=== PATIENT | female | born 1965 | race Caucasian/White ===

== ENCOUNTER 2018-10-25 15:50 | Emergency (ER) | payer BC ==
--- NOTE | 2018-10-25 16:15 | ER Document Report ---
HPI - HPI Patient complains to provider of: Hand and rib injury Time Seen by Provider: 10/25/18 16:07 Onset: This afternoon Onset/Duration: Sudden Quality of pain: Achy Pain Level: 4 Context: Patient states she was on scaffolding and fell about 4 foot. Patient states that when she fell she landed on her right hand and rib area. Patient states that she attempted to catch herself with each hand and therefore has bilateral hand pain and right rib tenderness. Patient denies any head injury or loss of consciousness. Patient denies any abdominal pain neck or back pain. Associated Symptoms: Other - Right rib, bilateral hand pain. denies: Nonproductive cough, Fever, Headache, Nausea, Vomiting Exacerbated by: Movement Relieved by: Remaining still Similar symptoms previously: No Recently seen / treated by doctor: No - ROS ROS below otherwise negative: Yes Systems Reviewed and Negative: Yes All other systems reviewed and negative - NEURO Neurology: DENIES: Headache, Weakness - CARDIOVASCULAR Cardiovascular: REPORTS: Chest pain - Right lateral rib tendern - RESPIRATORY Respiratory: DENIES: Trouble Breathing, Coughing - GASTROINTESTINAL Gastrointestinal: DENIES: Abdominal Pain, Nausea, Patient vomiting - REPRODUCTIVE Reproductive: DENIES: : - MUSCULOSKELETAL Musculoskeletal: REPORTS: Extremity pain - bilateral hands. DENIES: Back Pain, Neck Pain, Swelling - DERM Skin Color: Normal Skin Problems: None Past Medical History - General Information source: Patient - Social History Smoking Status: Never Smoker Chew tobacco use (# tins/day): No Drug Abuse: None Occupation: Construction Lives with: Spouse/Significant other Family History: Reviewed & Not Pertinent Patient has suicidal ideation: No Patient has homicidal ideation: No - Medical History Medical History: Negative Renal/ Medical History: Denies: Hx Peritoneal Dialysis Past Surgical History: Reports: Hx Tonsillectomy, Hx Tubal Ligation - Immunizations Immunizations up to date: Yes Hx Diphtheria, Pertussis, Tetanus Vaccination: Yes Vertical Provider Document - CONSTITUTIONAL Agree With Documented VS: Yes Exam Limitations: No Limitations General Appearance: WD/WN, No Apparent Distress - INFECTION CONTROL TRAVEL OUTSIDE OF THE [place] IN LAST 30 DAYS: No - HEENT HEENT: Atraumatic, Normocephalic - NECK Neck: Normal Inspection, Supple - RESPIRATORY Respiratory: Breath Sounds Normal, No Respiratory Distress. negative: Chest Non-Tender - Right lower anterior costal tenderness, no ecchymosis, no subcutaneous emphysema, no obvious deformity - CARDIOVASCULAR Cardiovascular: Regular Rate, Regular Rhythm, No Murmur Pulses: Normal: Radial - BACK Back: Normal Inspection - MUSCULOSKELETAL/EXTREMETIES Musculoskeletal/Extremeties: MAEW, FROM, Tender - Patient with tenderness to bilateral hands. Left hand tenderness to thenar eminence, right hand tenderness over right fifth metacarpal. No wrist tenderness, no forearm tenderness, No Edema. negative: Eccymosis - NEURO Level of Consciousness: Awake, Alert, Appropriate Motor/Sensory: No Motor Deficit - DERM Integumentary: Warm, Dry, No Rash Course - Re-evaluation Re-evalutation: 10/25/18 17:23 X-rays reviewed, no acute fracture noted on hands or rib images. Patient's respirations even unlabored. Patient without any abdominal tenderness. Will treat symptomatically at this time. Patient will be given an incentive spirometer with instructions for use. Good return precautions discussed. Patient stable for discharge at this time. - Vital Signs Vital signs: Temp Pulse Resp BP Pulse Ox 97.8 F 61 18 136/96 H 96 10/25/18 15:59 10/25/18 15:59 10/25/18 15:59 10/25/18 15:59 10/25/18 15:59 - Diagnostic Test Radiology reviewed: Image reviewed, Reports reviewed Discharge - Discharge Clinical Impression: Rib pain on right side Fall Qualifiers: Encounter type: initial encounter Qualified Code(s): W19.XXXA - Unspecified fall, initial encounter Hand sprain Qualifiers: Encounter type: initial encounter Laterality: unspecified laterality Qualified Code(s): S63.90XA - Sprain of unspecified part of unspecified wrist and hand, initial encounter Condition: Stable Disposition: HOME, SELF-CARE Instructions: Acetaminophen, Rene Wrap ([facility]), Anti-Inflammatory Medication ([facility]), Chest Wall Pain ([facility]), Ice & Elevation ([facility]), Rib Injuries and Fractures ([facility]), Sprain ([facility]) Additional Instructions: Return immediately for any new or worsening symptoms: Increased pain, shortness of breath, abdominal tenderness, vomiting, lightheaded dizziness or any worsening symptoms. Followup with your primary care provider, call tomorrow to make a followup appointment Follow-up with orthopedics for any persistent pain or problems Prescriptions: Lidocaine [Lidoderm 5% (700 mg) Transdermal Patch] 1 patch TP DAILY PRN #10 adh..patch PRN Reason: Naproxen [Naprosyn 250 Nmg Tablet] 1 tab PO BID #14 tablet Referrals: [facility] [Provider Group] - Follow up as needed
--- NOTE | 2018-10-25 17:18 | RADIOLOGY REPORT (SQ) ---
EXAM DESCRIPTION: RIBS RIGHT W/PA CHEST COMPLETED DATE/TIME: 10/25/2018 5:09 pm REASON FOR STUDY: fall COMPARISON: None. TECHNIQUE: Frontal view of the chest and additional views of the right ribs acquired. NUMBER OF VIEWS: Three view. LIMITATIONS: None. FINDINGS: FRONTAL CXR: No pneumothorax. No pleural effusion. No atelectasis or infiltrates. RIBS: No displaced rib fractures. No lytic or blastic bony lesions. OTHER: No other significant finding. IMPRESSION: NO PNEUMOTHORAX. NO DISPLACED RIB FRACTURES. COMMENT: SITE OF TRAUMA/COMPLAINT MARKED/STAMP COMPLETED: NO. TECHNICAL DOCUMENTATION: JOB ID: [id number] [id number] 2010 [employer]- All Rights Reserved Reading location - IP/workstation name: [email or web address]
--- NOTE | 2018-10-25 17:19 | RADIOLOGY REPORT (SQ) ---
EXAM DESCRIPTION: HAND BILATERAL 3 VIEWS COMPLETED DATE/TIME: 10/25/2018 5:10 pm REASON FOR STUDY: fall COMPARISON: None. EXAM PARAMETERS: NUMBER OF VIEWS: Three views. TECHNIQUE: AP, lateral and oblique radiographic images acquired of the right and left hand. LIMITATIONS: None. FINDINGS: MINERALIZATION: Normal. BONES: No acute fracture or dislocation. No worrisome bone lesions. JOINTS: No effusions. SOFT TISSUES: No soft tissue swelling. No foreign body. OTHER: No other significant finding. IMPRESSION: NEGATIVE STUDY OF THE RIGHT AND LEFT HANDS. NO RADIOGRAPHIC EVIDENCE OF ACUTE INJURY. TECHNICAL DOCUMENTATION: JOB ID: [id number] [employer]- All Rights Reserved Reading location - IP/workstation name: [email or web address]
[2018-10-25] MEDS ORDERED: LIDOCAINE 5% (700 MG) TRANSDERMAL ADH..PATCH TP ONE (17:21)
[2018-10-25 17:42] VITALS: BP 115/73
== END 2018-10-25 17:40 | disposition home or self-care (01) ==
LOC: ER 15:50
DX: S63.90XA Sprain of unspecified part of unspecified wrist and hand, initial encounter (principal); M79.641 Pain in right hand; M79.642 Pain in left hand; R07.81 Pleurodynia; W17.89XA Other fall from one level to another, initial encounter
CPT/HCPCS: 99283